=== PATIENT | female | born 1975 | race Caucasian/White ===

== ENCOUNTER 2018-04-16 22:42 | Emergency (ER) | payer MEDICAID ==
[2018-04-16] MEDS: SOD CHLORIDE 0.9% 1,000 ML IV (23:50)
[2018-04-16] MEDS: ONDANSETRON 4 MG INJ IV (23:50)
[2018-04-17] MEDS: ACETAMINOPHEN 500 MG TAB PO (02:00)
== END 2018-04-17 02:01 | disposition home or self-care (01) ==
LOC: FTE 22:42
DX: R11.10 Vomiting, unspecified (principal); R19.7 Diarrhea, unspecified
CPT/HCPCS: 96374; 99284-25